=== PATIENT | female | born 1980 | race Caucasian/White ===

== ENCOUNTER 2021-05-18 00:10 | Day surgery (SDCO) | payer OTHER ==
[~2021-05-18] VITALS: Ht 170.2 cm; Wt 74.6 kg
[2021-05-18 00:48] LABS: BASOPHIL 0 % (0-2); EOSINOPHIL 0 % (0-5); HGB 13.3 g/dl (12.5-16.0); LYMPHOCYTE 26.8 % (15-48); MCH 29.8 pg (25.0-31.0); MCHC 34.1 g/dL (32.0-36.0); MCV 87.4 fL (78.0-100.0); MONOCYTE 7.6 % (0-12); MPV 10.2 fL (6.0-9.5); NEUTROPHIL 65.6 % (41-80); NRBC 0; PLT 228 K/uL (150-400); RBC 4.46 M/uL (4.20-5.40); RDW 12.3 % (11.5-14.0); WBC 3.1 K/uL (4.0-10.5)
[2021-05-18 01:07] LABS: ALBUMIN 3.4 g/dL (3.4-5.0); BILIRUBIN - TOTAL 0.4 mg/dL (0.2-1.0); BUN/CREAT RATIO (CALC) 9.4 RATIO; CREATININE 0.85 mg/dL (0.51-0.95); GLOBULIN (CALCULATION) 3.9 g/dL; POTASSIUM 3.1 mmol/L (3.5-5.1); TOTAL PROTEIN 7.3 g/dL (6.4-8.2)
[2021-05-18] MEDS ORDERED: NORCO 5-325 TA1 EACH PO (14:16)
[2021-05-18] MEDS ORDERED: PHENERGAN25 M1 PO (14:16)
== END 2021-05-18 15:30 | disposition home or self-care (01) ==
LOC: FER 00:10 → FMS 06:24
PROVIDERS: Emergency Medicine Emergency Medical Services; ADMIT Internal Medicine
DX: U07.1 COVID-19 (principal); R11.2 Nausea with vomiting, unspecified; Z88.0 Allergy status to penicillin
CPT/HCPCS: 36415; 36600; 71275; 80053; 82803; 83690; 84484; 85025; 85379; 93005; C9113; G0378; J1100; J1170; J1885; J2405; J2550; J3480; J7030; Q9967; U0002